=== PATIENT | male | born 1975 | race Caucasian/White ===

== ENCOUNTER 2017-11-25 09:52 | Emergency (ER) | payer SELFPAY ==
[~2017-11-25] VITALS: Ht 177.8 cm; Wt 85.0 kg
[2017-11-25 10:14] VITALS: BP 136/78
== END 2017-11-25 10:53 | disposition home or self-care (01) ==
LOC: ED 10:20
DX: H10.022 Other mucopurulent conjunctivitis, left eye (principal)
CPT/HCPCS: 99283